=== PATIENT | male | born 1945 | race Caucasian/White ===

== ENCOUNTER → 2020-04-06 | Outpatient (CLI) | payer MEDICARE ==
[~2020-04-06] MED LIST: ASPI-515 PO; BIMA2.5D EACHEYE; HYDR-3245 PO; HYDR-3246 PO; LATA2.5D3 EACHEYE; LISI-167 PO; LUTE10TA2 PO; METH750T87 PO; MULT-642 PO; MULT-658 PO; OMEG500C3 PO; OMEP10CA2 PO; OXYC1TAB7 PO; VIT1CAPS42 PO
== END | disposition home or self-care (01) ==
LOC: STAR 11:42
PROVIDERS: ATTEND Urology
DX: Z01.818 Encounter for other preprocedural examination (principal); N35.919 Unspecified urethral stricture, male, unspecified site; Z85.51 Personal history of malignant neoplasm of bladder
CPT/HCPCS: 93005

== ENCOUNTER → 2020-08-13 | Outpatient (CLI) | payer MEDICARE ==
[~2020-08-13] MED LIST changes: -LATA2.5D3 EACHEYE; +LATA2.5D4 EACHEYE
== END | disposition home or self-care (01) ==
LOC: STAR 11:31
PROVIDERS: ATTEND Urology
DX: Z01.812 Encounter for preprocedural laboratory examination (principal); Z20.828 Contact with and (suspected) exposure to other viral communicable diseases; R94.31 Abnormal electrocardiogram [ECG] [EKG]; Z85.51 Personal history of malignant neoplasm of bladder
CPT/HCPCS: 87635; 93005

== ENCOUNTER 2020-08-17 13:33 | Day surgery (SDC) | payer MEDICARE ==
[~2020-08-17] VITALS: Ht 185.4 cm; Wt 97.2 kg
[2020-08-17 13:56] VITALS: BP 151/82
[2020-08-17] MEDS ORDERED: CHLORHEXIDINE 15 ML UDC ONE (13:59)
[2020-08-17] MEDS ORDERED: CHLORHEXIDINE 15 ML UDC MM ONE (14:00)
[2020-08-17] MEDS ORDERED: LACTATED RINGERS 1,000 ML IV SCH (14:00)
[2020-08-17] MEDS ORDERED: SODIUM CHLORIDE 0.9% IS ONE (14:30)
[2020-08-17] MEDS ORDERED: GEMCITABINE HCL IS ONE (14:30)
[2020-08-17] MEDS ORDERED: FENTANYL PF 250 MCG/5ML ONE (14:51)
[2020-08-17] MEDS ORDERED: GEMCITABINE HCL 1,000 MG in SODIUM CHLORIDE 0.9% 23.7 ML IS ONE (15:00)
[2020-08-17] MEDS ORDERED: NEOSTIGMINE 1 MG/ML, 10ML ONE (17:11)
[2020-08-17] MEDS ORDERED: SUCCINYLCHOLINE 20 MG/ML, 10ML ONE (17:11)
[2020-08-17] MEDS ORDERED: DEXAMETHASONE 4 MG/ML, 1ML ONE (17:11)
[2020-08-17] MEDS ORDERED: CEFAZOLIN 1,000 MG ONE (17:11)
[2020-08-17] MEDS ORDERED: GLYCOPYRROLATE 0.2MG/1ML, 5ML ONE (17:11)
[2020-08-17] MEDS ORDERED: PROPOFOL 10 MG/ML, 20ML ONE (17:11)
[2020-08-17] MEDS ORDERED: ROCURONIUM 10 MG/ML,10ML ONE (17:11)
[2020-08-17] MEDS ORDERED: ONDANSETRON 2MG/ML, 2ML ONE (17:11)
[2020-08-17] MEDS ORDERED: FENTANYL PF 100 MCG/2ML IV PRN (17:30)
[2020-08-17] MEDS ORDERED: OXYcodone 5 MG/5 ML ORAL.SOL UDC PO PRN (17:30)
[2020-08-17] MEDS ORDERED: METHOCARBAMOL 1,000 MG in DEXTROSE 5% 100 ML IV PRN (17:30)
[2020-08-17] MEDS ORDERED: EPHEDRINE 50 MG/ML, 1ML IVPush PRN (17:30)
[2020-08-17] MEDS ORDERED: ACETAMINOPHEN 325 MG TABLET PO PRN (17:30)
[2020-08-17] MEDS ORDERED: ONDANSETRON 2MG/ML, 2ML IVPush PRN (17:30)
[2020-08-17] MEDS ORDERED: LABETALOL 5MG/ML, 20ML IV PRN (17:30)
[2020-08-17] MEDS ORDERED: hydrALAzine 20 MG/ML, 1ML IV PRN (17:30)
[2020-08-17] MEDS ORDERED: HYDROmorphone 1 MG/ML, 1ML INJ IVPush PRN (17:30)
== END 2020-08-17 20:05 | disposition home or self-care (01) ==
LOC: OR 13:33 → OUT 20:05
PROVIDERS: ATTEND Urology
DX: C67.2 Malignant neoplasm of lateral wall of bladder (principal); N35.919 Unspecified urethral stricture, male, unspecified site; I10 Essential (primary) hypertension; Z79.899 Other long term (current) drug therapy; Z80.9 Family history of malignant neoplasm, unspecified; Z82.49 Family history of ischemic heart disease and other diseases of the circulatory system
CPT/HCPCS: 51720; 52235; 88305; J0330; J0690; J1100; J2405; J2704; J2710; J3010

== ENCOUNTER → 2021-02-09 | Outpatient (CLI) | payer MEDICARE ==
[~2021-02-09] MED LIST changes: -ASPI-515 PO; +ASPI-963 PO; -HYDR-3245 PO; -HYDR-3246 PO; +HYDR-3248 PO; +HYDR1TAB53 PO
[2021-02-09 10:02] LABS: ALANINE AMINOTRANSFERASE 70 U/L (12-78); ALBUMIN 3.8 g/dL (3.4-5.0); ANION GAP 5 mmol/L (5-15); CALCIUM 9.4 mg/dL (8.5-10.1); CHLORIDE 108 mmol/L (98-107); CREATININE 1.36 mg/dL (0.7-1.3)
[2021-02-09 10:04] LABS: ALKALINE PHOSPHATASE 110 U/L (45-117); BILIRUBIN,TOTAL 0.5 mg/dL (0.2-1.0)
== END | disposition home or self-care (01) ==
LOC: STAR 08:53
PROVIDERS: ATTEND Urology
DX: Z01.818 Encounter for other preprocedural examination (principal); R94.31 Abnormal electrocardiogram [ECG] [EKG]; Z20.822 Contact with and (suspected) exposure to COVID-19
CPT/HCPCS: 36415; 80053; 93005; U0003; U0005

== ENCOUNTER 2021-02-14 11:57 | Day surgery (SDC) | payer MEDICARE ==
[~2021-02-14] VITALS: Ht 185.4 cm; Wt 91.4 kg
[2021-02-14 12:35] VITALS: BP 135/83
[2021-02-14] MEDS ORDERED: CHLORHEXIDINE 15 ML UDC PO ONE (13:00)
[2021-02-14] MEDS ORDERED: LACTATED RINGERS 1,000 ML IV SCH (13:00)
[2021-02-14] MEDS ORDERED: GEMCITABINE HCL 1,000 MG in SODIUM CHLORIDE 0.9% 23.7 ML IS ONE (14:00)
[2021-02-14] MEDS ORDERED: FENTANYL PF 100 MCG/2ML ONE ×3 (15:17→16:38)
[2021-02-14] MEDS ORDERED: KETOROLAC 30 MG/1 ML IV PRN (15:30)
[2021-02-14] MEDS ORDERED: OXYcodone 5 MG/5 ML ORAL.SOL UDC PO PRN (15:30)
[2021-02-14] MEDS ORDERED: DIAZEPAM 5 MG/ML, 2ML IVPush PRN (15:30)
[2021-02-14] MEDS ORDERED: ALBUTEROL SULFATE 2.5 MG/3 ML NPPB PRN (15:30)
[2021-02-14] MEDS ORDERED: LABETALOL 5MG/ML, 20ML IV PRN (15:30)
[2021-02-14] MEDS ORDERED: HYDROmorphone 2 MG/ML, 1ML IVPush PRN (15:30)
[2021-02-14] MEDS ORDERED: ACETAMINOPHEN 325 MG TABLET PO PRN (15:30)
[2021-02-14] MEDS ORDERED: MEPERIDINE/PF 25MG/0.5ML IVPush PRN (15:30)
[2021-02-14] MEDS ORDERED: hydrALAzine 20 MG/ML, 1ML IV PRN (15:30)
[2021-02-14] MEDS ORDERED: PROMETHAZINE 25 MG/ML, 1ML IV PRN (15:30)
[2021-02-14] MEDS ORDERED: OPIUM/BELLADONNA SUPP.RECT 16.2-60 MG ONE (16:17)
[2021-02-14] MEDS ORDERED: SUGAMMADEX 200 MG/2 ML IVPush ONE (16:20)
[2021-02-14] MEDS ORDERED: SUCCINYLCHOLINE 20 MG/ML, 10ML ONE (16:21)
[2021-02-14] MEDS ORDERED: DEXAMETHASONE 4 MG/ML, 1ML ONE (16:21)
[2021-02-14] MEDS ORDERED: PROPOFOL 10 MG/ML, 20ML ONE (16:21)
[2021-02-14] MEDS ORDERED: ROCURONIUM 10MG/ML,5ML ONE (16:21)
[2021-02-14] MEDS ORDERED: CEFAZOLIN 1,000 MG ONE (16:21)
[2021-02-14] MEDS: FENTANYL PF 100 MCG/2ML IV PRN ×2 (16:45→16:50)
== END 2021-02-14 18:10 | disposition home or self-care (01) ==
LOC: OUT 11:57
PROVIDERS: ATTEND Urology
DX: N35.913 Unspecified membranous urethral stricture, male (principal); C67.5 Malignant neoplasm of bladder neck; I10 Essential (primary) hypertension; Z79.899 Other long term (current) drug therapy
CPT/HCPCS: 51720; 52235; 52276; 88305; 88307; C1769; J0330; J0690; J1100; J2704; J3010; J7120; J9201